=== PATIENT | male | born 1995 | race Asian ===

== ENCOUNTER 2018-12-31 06:56 | Emergency (ER) | payer BC ==
[2018-12-31 07:51] LABS: ABS Eosinophils 0.1 10^3/ul (0-0.6); ABS Lymphocytes 1.6 10^3/ul (1.0-4.8); ABS Monocytes 0.9 10^3/ul (0-0.8); Eosinophil % 0.9 %; Hematocrit 45 % (42-52); Hemoglobin 14.7 g/dL (14.0-18.0); Mean Corpuscular HGB Conc 33 g/dL (31-36); Mean Corpuscular Hemoglobin 28 pg (27-31); Mean Corpuscular Volume 85 fL (80-94); Mean Platelet Volume 9.1 fL (7.4-10.4); Platelet Count 279 10^3/uL (150-450); Red Blood Count 5.23 10^6 /uL (4.18-5.48); Red Cell Distribution Width 13 % (10.5-15); White Blood Count 11.7 10^3/uL (3.5-10.8)
[2018-12-31 08:02] LABS: Albumin 4.8 g/dL (3.2-5.2); Albumin/Globulin Ratio 1.5 (1-3); BUN/Creatinine Ratio 10.4 (8-20); Calcium 10.1 mg/dL (8.6-10.3); EGFR African American 118.5 (>60); EGFR Non-African American 97.9 (>60); Globulin 3.1 g/dL (2-4); Total Bilirubin 0.6 mg/dL (0.2-1.0); Total Protein 7.9 g/dL (6.4-8.9)
--- NOTE | 2018-12-31 08:26 | ED ---
HPI Chest Pain - HPI Summary HPI Summary: Patient is a 23-year-old male who is otherwise healthy presenting to the ED with midepigastric pain since yesterday. He has also had recent bronchitis diagnosis with cough and chest congestion. This since resolved and he denies any congestion at this time. He states he has a history of epigastric pain and GERD, but takes no medications. He states this feels similar. However, this morning after coughing, he noticed blood in his sputum and became concerned. He denies any weakness, fevers, sweats, chills, recent illness, CP or SOB. He states he is feeling well at this time and is asymptomatic. Patient appears in no distress on arrival. Patient takes no medications, is otherwise healthy and denies recent travel. - History of Current Complaint Chief Complaint: EDGeneral Time Seen by Provider: 12/31/18 07:25 Hx Obtained From: Patient Onset/Duration: Started Minutes Ago Timing: Constant Initial Severity: Mild Current Severity: None Pain Intensity: 0 Pain Scale Used: 0-10 Numeric Chest Pain Radiates: No Aggravating Factor(s): Nothing Alleviating Factor(s): Nothing - Risk Factors Pulmonary Embolism Risk Factors: Negative TAD Risk Factors: Negative - Allergy/Home Medications Allergies/Adverse Reactions: Allergies Allergy/AdvReac Type Severity Reaction Status Date / Time No Known Allergies Allergy Verified 12/31/18 06:59 PMH/Surg Hx/FS Hx/Imm Hx Previously Healthy: Yes Respiratory History: Reports: Hx Asthma - Immunization History Hx Pertussis Vaccination: No Immunizations Up to Date: Yes Infectious Disease History: No Infectious Disease History: Denies: Traveled Outside the [place] in Last 30 Days - Social History Occupation: Unemployed, Student Lives: Dormitory/Roommates Alcohol Use: None Hx Substance Use: No Substance Use Type: Reports: None Hx Tobacco Use: No Smoking Status (MU): Never Smoked Tobacco Review of Systems Constitutional: Negative Negative: Fever, Chills, Fatigue, Skin Diaphoresis Negative: Palpitations, Chest Pain Positive: Cough, Other - hemoptysis. Negative: Shortness Of Breath Genitourinary: Negative Positive: no symptoms reported, see HPI Negative: Arthralgia, Myalgia Skin: Negative All Other Systems Reviewed And Are Negative: Yes Physical Exam Triage Information Reviewed: Yes Vital Signs On Initial Exam: Initial Vitals Temp Pulse Resp BP Pulse Ox 97.8 F 109 20 132/92 98 12/31/18 06:57 12/31/18 06:57 12/31/18 06:57 12/31/18 06:57 12/31/18 06:57 Vital Signs Reviewed: Yes Appearance: Positive: Well-Appearing, Well-Nourished Skin: Positive: Warm, Skin Color Reflects Adequate Perfusion Head/Face: Positive: Normal Head/Face Inspection Eyes: Positive: EOMI, AARTI, Conjunctiva Clear Neck: Positive: Supple, Nontender, No Lymphadenopathy Respiratory/Lung Sounds: Positive: Clear to Auscultation, Breath Sounds Present Cardiovascular: Positive: RRR, Pulses are Symmetrical in both Upper and Lower Extremities. Negative: Leg Edema Left, Leg Edema Right Musculoskeletal: Positive: Strength/ROM Intact Neurological: Positive: Sensory/Motor Intact, Alert, Oriented to Person Place, Time, Speech Normal Psychiatric: Positive: Normal, Affect/Mood Appropriate AVPU Assessment: Alert Diagnostics - Vital Signs Vital Signs Temp Pulse Resp BP Pulse Ox 12/31/18 07:19 109 127/108 99 12/31/18 06:57 97.8 F 109 20 132/92 98 - Laboratory Lab Results: Lab Results 12/31/18 12/31/18 12/31/18 Range/Units 07:37 07:37 07:37 WBC 11.7 H (3.5-10.8) 10^3/uL RBC 5.23 (4.18-5.48) 10^6 /uL Hgb 14.7 (14.0-18.0) g/dL Hct 45 (42-52) % MCV 85 (80-94) fL MCH 28 (27-31) pg MCHC 33 (31-36) g/dL RDW 13 (10.5-15) % Plt Count 279 (150-450) 10^3/uL MPV 9.1 (7.4-10.4) fL Neut % (Auto) 77.3 % Lymph % (Auto) 14.0 % Weld % (Auto) 7.5 % Eos % (Auto) 0.9 % Baso % (Auto) 0.3 % Absolute Neuts (auto) 9.0 H (1.5-7.7) 10^3/ul Absolute Lymphs (auto) 1.6 (1.0-4.8) 10^3/ul Absolute Monos (auto) 0.9 H (0-0.8) 10^3/ul Absolute Eos (auto) 0.1 (0-0.6) 10^3/ul Absolute Basos (auto) 0.0 (0-0.2) 10^3/ul Absolute Nucleated RBC 0.0 10^3/ul Nucleated RBC % 0.0 Sodium 138 (135-145) mmol/L Potassium 4.0 (3.5-5.0) mmol/L Chloride 102 (101-111) mmol/L Carbon Dioxide 26 (22-32) mmol/L Anion Gap 10 (2-11) mmol/L BUN 10 (6-24) mg/dL Creatinine 0.96 (0.67-1.17) mg/dL Est GFR ( Amer) 118.5 (>60) Est GFR (Non-Af Amer) 97.9 (>60) BUN/Creatinine Ratio 10.4 (8-20) Glucose 114 H (70-100) mg/dL Lactic Acid 1.3 (0.5-2.0) mmol/L Calcium 10.1 (8.6-10.3) mg/dL Total Bilirubin 0.60 (0.2-1.0) mg/dL AST 23 (13-39) U/L ALT 23 (7-52) U/L Alkaline Phosphatase 72 (34-104) U/L Troponin I 0.00 (<0.04) ng/mL Total Protein 7.9 (6.4-8.9) g/dL Albumin 4.8 (3.2-5.2) g/dL Globulin 3.1 (2-4) g/dL Albumin/Globulin Ratio 1.5 (1-3) Result Diagrams: 12/31/18 07:37 12/31/18 07:37 Lab Statement: Any lab studies that have been ordered have been reviewed, and results considered in the medical decision making process. - Radiology No standard instances Radiology Interpretation Completed By: Radiologist - IMPRESSION: MASSLIKE OPACIFICATION OF THE RIGHT LOWER LUNG. THE DIFFERENTIAL CONGENITAL SEQUESTRATION , THOUGH NEOPLASM IS WITHIN THE DIFFERENTIAL. RECOMMEND CONSIDERATION OF FURTHER EVALUATION WITH CONTRAST ENHANCED CT OF THE CHEST. - CT No standard instances CT Interpretation Completed By: Radiologist - IMPRESSION: 1. RIGHT-SIDED DIAPHRAGMATIC HERNIA CONTAINING A PORTION OF THE RIGHT LOBE OF LIVER. THERE IS ASSOCIATED COMPRESSIVE ATELECTASIS OF THE RIGHT LUNG BASE. 2. THERE IS PATCHY AIRSPACE AND RETICULAR NODULAR OPACIFICATION OF THE RIGHT LUNG SUGGESTIVE OF AN INFECTIOUS OR INFLAMMATORY PROCESS. 3. BILATERAL GYNECOMASTIA.. Chest Pain Course/Dx - Course Course Of Treatment: During the course of treatment, the patient is evaluated for hemoptysis 1, recent cough. He states he has had a cough over the past week, but this is improved. He is also denying any congestion. He denies any CP or SOB. Denies any fevers, sweats, chills. Labs are obtained which are WNL. Chest x-ray obtained: see above. Due to the masslike opacity, a contrast enhanced CT was obtained. This shows a reticular nodular opacification of the right lung suggestive of an infectious or inflammatory process. Patient remains asymptomatic, afebrile, nontoxic and appearing. Lungs are CTA,. He has no abdominal pain throughout on physical exam. He will be started on azithromycin for an infectious process. Called Dr. Lozada's office for a close f/u. Office requesting fax of referral and we will attempt to have patient come to office early next week. I have also referred him to surgery and have discussed the hernia containing a portion of the right lobe of the liver. Patient is stable and okay with discharge and plan at this time. I discussed with the patient at length strict return precautions and have answered all questions to the best of my ability. - Chest Pain Differential Diagnosis/HQI/PQRI: Other: - Infectious or inflammatory process, nodular opacification of the right lung, hernia, neoplasm - Diagnoses Provider Diagnoses: Pneumonia Discharge - Sign-Out/Discharge Documenting (check all that apply): Patient Departure Patient Received Moderate/Deep Sedation with Procedure: No - Discharge Plan Condition: Stable Disposition: HOME Prescriptions: Azithromycin TAB* [Zithromax TAB (Z-DANIEL) 250 mg #6 tabs] 250 mg PO DAILY #4 tab Patient Education Materials: Bacterial Pneumonia (ED) Referrals: Minal Roman MD [Medical Doctor] - 2 Days (Please follow up with Dr. Lozada in 2 days to recheck results of xray) Samantha Lozada MD [Medical Doctor] - No Primary Care Phys,NOPCP [Primary Care Provider] - Additional Instructions: Please follow up with Dr. Lozada as soon as possible Take azithromycin daily x 4 days (start tomorrow) Please also follow up with surgery If you develop worsening symptoms, continue to have blood with coughing, develop fevers, sweats or chills - return to the ED immediately - Billing Disposition and Condition Condition: STABLE Disposition: Home
[2018-12-31] MEDS ORDERED: Iohexol 300* (CONTRAST) 10 ML SDV IV ONE (09:09)
[2018-12-31] MEDS ORDERED: Azithromycin TAB* 250 MG PO ONE (10:17)
[2018-12-31 11:04] VITALS: BP 126/93
== END 2018-12-31 11:04 | disposition home or self-care (01) ==
LOC: ED 06:56
DX: J18.9 Pneumonia, unspecified organism (principal); J45.909 Unspecified asthma, uncomplicated; N62 Hypertrophy of breast
CPT/HCPCS: 36415; 71046; 71260; 80053; 83605; 84484; 85025; 93005; 99283; A9270-GY; Q9967